=== PATIENT | female | born 1955 | race Caucasian/White ===

== ENCOUNTER 2018-01-07 17:50 | Emergency (ER) | payer MEDICAID ==
[~2018-01-07 17:50] MED LIST: PRED10TA PO
[2018-01-07 18:02] VITALS: BP 136/81
[2018-01-07] MEDS ORDERED: PENI500T2 PO (18:09)
== END 2018-01-07 18:22 | disposition home or self-care (01) ==
LOC: ER 17:50
DX: K08.89 Other specified disorders of teeth and supporting structures (principal); F15.90 Other stimulant use, unspecified, uncomplicated; Z79.899 Other long term (current) drug therapy
CPT/HCPCS: 99283

== ENCOUNTER 2018-01-11 19:09 | Emergency (ER) | payer MEDICAID ==
[~2018-01-11] VITALS: Ht 152.4 cm; Wt 54.0 kg
[~2018-01-11 19:09] MED LIST changes: +PENI500T2 PO
[2018-01-11 19:22] VITALS: BP 104/68
[2018-01-11] MEDS ORDERED: albuterol 2.5 MG/3 ML nebule NEB ONE (20:45)
[2018-01-11] MEDS ORDERED: predniSONE 20 mg tablet PO ONE (20:45)
[2018-01-11] MEDS ORDERED: PRED20TA PO (21:56)
== END 2018-01-11 22:00 | disposition home or self-care (01) ==
LOC: ER 19:10
DX: J20.9 Acute bronchitis, unspecified (principal); F15.90 Other stimulant use, unspecified, uncomplicated; Z87.891 Personal history of nicotine dependence; Z79.899 Other long term (current) drug therapy
CPT/HCPCS: 71045; 94640; 94760; 99283; J7512